=== PATIENT | female | born 1965 | race Caucasian/White ===

== ENCOUNTER 2017-03-21 11:34 | Emergency (ER) | payer SELFPAY | END 2017-03-21 14:13 | disposition left against medical advice (07) | LOC: E/R 14:13 | DX: Z53.21 Procedure and treatment not carried out due to patient leaving prior to being seen by health care provider (principal) ==

== ENCOUNTER 2018-06-03 09:27 | Inpatient (IN) | payer OTHER ==
[2018-06-03] MEDS: SOD CHLORIDE 0.9% 1,000 ML IV (07:00)
[2018-06-03 10:42] LABS: ADD MAN DIFF? NO
[2018-06-03 10:46] LABS: BASOPHILS % 0.6 % (0.0-2.0); EOSINOPHILS # 0.1 10^3/ul (0.0-0.5); EOSINOPHILS % 1.5 % (0.0-7.0); HEMATOCRIT 39.1 % (37.0-47.0); HEMOGLOBIN 12.1 g/dl (12.0-16.0); LYMPHOCYTES # 2.2 10^3/ul (0.8-2.9); LYMPHOCYTES % 30.8 % (15.0-51.0); MEAN CORPUSCULAR HEMOGLOBIN 26.2 pg (29.0-33.0); MEAN CORPUSCULAR HGB CONC 30.9 g/dl (32.0-37.0); MEAN CORPUSCULAR VOLUME 84.8 fl (82.0-101.0); MEAN PLATELET VOLUME 9.4 fl (7.4-10.4); MONOCYTE # 0.4 10^3/ul (0.3-0.9); MONOCYTES % 6.1 % (0.0-11.0); NEUTROPHIL # 4.4 10^3/ul (1.6-7.5); NEUTROPHILS % 60.6 % (39.0-77.0); PLATELET COUNT 270 10^3/UL (140-415); RED BLOOD COUNT 4.61 10^6/ul (4.20-5.40); RED CELL DISTRIBUTION WIDTH 15.6 % (11.5-14.5)
[2018-06-03 10:46] LABS: WHITE BLOOD COUNT 7.2 10^3/ul (4.8-10.8)
[2018-06-03] MEDS ORDERED: PROPOFOL 20 ML (10:49)
[2018-06-03] MEDS ORDERED: ROCURONIUM 50 MG INJ (10:49)
[2018-06-03] MEDS ORDERED: LIDOCAINE 2% (SDV) 5 ML INJ (10:49)
[2018-06-03] MEDS ORDERED: MIDAZOLAM 1 MG/ML 2 ML INJ ×2 (10:49→13:34)
[2018-06-03] MEDS ORDERED: FENTAnyl 50 MCG/ML VIAL (10:52)
[2018-06-03] MEDS ORDERED: morphine SULFATE/PF (10 MG/10 ML) INJ (10:53)
[2018-06-03] MEDS ORDERED: ROPIVACAINE 0.5 % 30 ML VIAL (10:54)
[2018-06-03] MEDS ORDERED: HYDROmorphONE 1 MG/5 ML IV SYRINGE IV (11:00)
[2018-06-03 11:01] LABS: ANION GAP 8 (5-13); BLOOD UREA NITROGEN 18 mg/dl (7-20); CARBON DIOXIDE 30 mmol/L (21-31); CHLORIDE 104 mmol/L (97-110); Estimated GFR 59 mL/min (>60); GLUCOSE 118 mg/dl (70-220); POTASSIUM 4.5 mmol/L (3.5-5.1); SODIUM 142 mmol/L (135-144)
[2018-06-03 11:03] LABS: INR 0.95; PROTIME 12.8 Sec (11.9-14.9)
[2018-06-03 11:15] LABS: PARTIAL THROMBOPLASTIN TIME 35.5 Sec (23.0-35.0)
[2018-06-03] MEDS ORDERED: ONDANSETRON 4 MG INJ (11:29)
[2018-06-03] MEDS ORDERED: CEFAZOLIN 1 GM INJ (11:29)
[2018-06-03] MEDS: CEFAZOLIN 2 GM/50 ML (PMX) 50 ML IVPB (11:30)
[2018-06-03] MEDS: POLYMYXIN/BACITRACIN 1L IRRIG (12:31)
[2018-06-03] MEDS ORDERED: SUGAMMADEX SODIUM 200 MG/2 ML VIAL IV (13:18)
[2018-06-03] MEDS ORDERED: ONDANSETRON 4 MG INJ IV (13:30)
[2018-06-03] MEDS ORDERED: ACETAMINOPHEN 325 MG TAB PO (13:30)
[2018-06-03] MEDS ORDERED: HYDROmorphONE 0.5 MG/0.5 ML SYG IV (13:30)
[2018-06-03] MEDS: ONDANSETRON 4 MG INJ IV (13:54)
[2018-06-03] MEDS: HYDROmorphONE 1 MG/5 ML IV SYRINGE IV (13:54)
[2018-06-03] MEDS: KETOROLAC 30 MG INJ IV ×2 (13:56→20:32)
[2018-06-03] MEDS ORDERED: ROPIVACAINE 0.2% 100ML BAG EPI ×2 (14:30→15:00)
[2018-06-03] MEDS ORDERED: NALOXONE (0.4 MG/ML) INJ IV ×2 (14:30→15:00)
[2018-06-03] MEDS: DIPHENHYDRAMINE 50 MG INJ IV (15:40)
[2018-06-03] MEDS: HYDROmorphONE 1 MG/ML SYG IV ×2 (17:07→21:08)
[2018-06-03] MEDS: DEXTROSE 5%-0.45% NACL 1,000 ML IV ×2 (17:07→23:30)
[2018-06-03] MEDS: MIDAZOLAM 1 MG/ML 2 ML INJ IV (18:00)
[2018-06-03] MEDS: FAMOTIDINE 20 MG INJ IV (20:34)
[2018-06-03] MEDS: DOCUSATE SODIUM 100 MG CAP PO (20:39)
[2018-06-03] MEDS ORDERED: ROPIVACAINE 0.5% EPI (21:30)
[2018-06-03] MEDS: ROPIVACAINE 0.5% EPI (22:16)
[2018-06-04] MEDS: KETOROLAC 30 MG INJ IV ×5 (01:30→21:17)
[2018-06-04] MEDS: HYDROmorphONE 1 MG/ML SYG IV ×6 (02:00→23:37)
[2018-06-04] MEDS: DEXTROSE 5%-0.45% NACL 1,000 ML IV ×3 (02:26→23:38)
[2018-06-04] MEDS: ROPIVACAINE 0.5% EPI (05:46)
[2018-06-04] MEDS: DOCUSATE SODIUM 100 MG CAP PO ×3 (08:23→21:17)
[2018-06-04] MEDS: FAMOTIDINE 20 MG INJ IV ×2 (08:23→21:17)
[2018-06-04 09:19] LABS: ADD MAN DIFF? NO
[2018-06-04 09:29] LABS: WHITE BLOOD COUNT 6.8 10^3/ul (4.8-10.8)
[2018-06-04 09:29] LABS: BASOPHILS % 0.3 % (0.0-2.0); EOSINOPHILS # 0.1 10^3/ul (0.0-0.5); EOSINOPHILS % 1.3 % (0.0-7.0); HEMATOCRIT 36.6 % (37.0-47.0); LYMPHOCYTES # 1.4 10^3/ul (0.8-2.9); LYMPHOCYTES % 21.1 % (15.0-51.0); MEAN CORPUSCULAR HEMOGLOBIN 26.4 pg (29.0-33.0); MEAN CORPUSCULAR HGB CONC 30.1 g/dl (32.0-37.0); MEAN CORPUSCULAR VOLUME 87.8 fl (82.0-101.0); MEAN PLATELET VOLUME 9.5 fl (7.4-10.4); MONOCYTE # 0.6 10^3/ul (0.3-0.9); MONOCYTES % 8.2 % (0.0-11.0); NEUTROPHIL # 4.7 10^3/ul (1.6-7.5); NEUTROPHILS % 68.8 % (39.0-77.0); PLATELET COUNT 226 10^3/UL (140-415); RED BLOOD COUNT 4.17 10^6/ul (4.20-5.40); RED CELL DISTRIBUTION WIDTH 15.6 % (11.5-14.5)
[2018-06-04 09:53] LABS: ANION GAP 9 (5-13); BLOOD UREA NITROGEN 11 mg/dl (7-20); CALCIUM 8.7 mg/dl (8.4-10.2); CARBON DIOXIDE 24 mmol/L (21-31); CHLORIDE 104 mmol/L (97-110); CREATININE 0.85 mg/dl (0.44-1.00); Estimated GFR > 60 mL/min (>60); GLUCOSE 159 mg/dl (70-220); POTASSIUM 4.1 mmol/L (3.5-5.1); SODIUM 137 mmol/L (135-144)
[2018-06-04] MEDS: CEFTRIAXONE 1 GM/50 ML (PMX) 50 ML IVPB (15:30)
[2018-06-04] MEDS ORDERED: HYDROmorphONE 0.2 MG/ML PCA IV (16:00)
[2018-06-04] MEDS: NICOTINE (21 MG/24 HR) PATCH TRANSDERM (16:25)
[2018-06-04] MEDS: HYDROCODONE/APAP (10/325) TAB PO (18:09)
[2018-06-04] MEDS: ALPRAZOLAM 1 MG TAB PO (21:22)
[2018-06-05] MEDS: KETOROLAC 30 MG INJ IV ×2 (01:30→06:43)
[2018-06-05] MEDS: HYDROCODONE/APAP (10/325) TAB PO ×2 (03:18→19:25)
[2018-06-05] MEDS: HYDROmorphONE 1 MG/ML SYG IV ×5 (03:55→20:06)
[2018-06-05] MEDS: DEXTROSE 5%-0.45% NACL 1,000 ML IV (06:43)
[2018-06-05] MEDS: NICOTINE (21 MG/24 HR) PATCH TRANSDERM (08:13)
[2018-06-05] MEDS: DOCUSATE SODIUM 100 MG CAP PO ×3 (08:15→20:06)
[2018-06-05] MEDS: FAMOTIDINE 20 MG INJ IV (08:15)
[2018-06-05 11:14] LABS: ADD MAN DIFF? NO
[2018-06-05 11:21] LABS: WHITE BLOOD COUNT 6.2 10^3/ul (4.8-10.8)
[2018-06-05 11:21] LABS: BASOPHILS % 0.5 % (0.0-2.0); EOSINOPHILS # 0.2 10^3/ul (0.0-0.5); EOSINOPHILS % 2.6 % (0.0-7.0); HEMATOCRIT 35.5 % (37.0-47.0); HEMOGLOBIN 10.9 g/dl (12.0-16.0); LYMPHOCYTES # 1.5 10^3/ul (0.8-2.9); MEAN CORPUSCULAR HEMOGLOBIN 26.4 pg (29.0-33.0); MEAN CORPUSCULAR HGB CONC 30.7 g/dl (32.0-37.0); MEAN PLATELET VOLUME 9.6 fl (7.4-10.4); MONOCYTE # 0.4 10^3/ul (0.3-0.9); MONOCYTES % 6.9 % (0.0-11.0); NEUTROPHIL # 4.1 10^3/ul (1.6-7.5); NEUTROPHILS % 65.4 % (39.0-77.0); PLATELET COUNT 217 10^3/UL (140-415); RED BLOOD COUNT 4.13 10^6/ul (4.20-5.40); RED CELL DISTRIBUTION WIDTH 15.2 % (11.5-14.5)
[2018-06-05 11:37] LABS: ANION GAP 6 (5-13); BLOOD UREA NITROGEN 9 mg/dl (7-20); CALCIUM 8.8 mg/dl (8.4-10.2); CARBON DIOXIDE 31 mmol/L (21-31); CHLORIDE 102 mmol/L (97-110); CREATININE 0.77 mg/dl (0.44-1.00); Estimated GFR > 60 mL/min (>60); GLUCOSE 156 mg/dl (70-220); POTASSIUM 3.9 mmol/L (3.5-5.1); SODIUM 139 mmol/L (135-144)
[2018-06-05] MEDS: ERTAPENEM SODIUM 1 GM in SOD CHLORIDE 0.9% 100 ML IVPB (12:15)
[2018-06-05] MEDS: ALPRAZOLAM 1 MG TAB PO ×2 (14:44→22:50)
[2018-06-05] MEDS: MAGNESIUM HYDROXIDE 30ML CUP PO (18:47)
[2018-06-05] MEDS: FAMOTIDINE 20 MG TAB PO (20:06)
[2018-06-06] MEDS: HYDROmorphONE 1 MG/ML SYG IV ×5 (00:11→17:01)
[2018-06-06] MEDS: ALPRAZOLAM 1 MG TAB PO ×2 (06:41→14:58)
[2018-06-06] MEDS: NICOTINE (21 MG/24 HR) PATCH TRANSDERM (08:38)
[2018-06-06] MEDS: DOCUSATE SODIUM 100 MG CAP PO ×2 (08:39→14:18)
[2018-06-06] MEDS: FAMOTIDINE 20 MG TAB PO (08:39)
[2018-06-06] MEDS: MAGNESIUM HYDROXIDE 30ML CUP PO (09:38)
[2018-06-06] MEDS: ERTAPENEM SODIUM 1 GM in SOD CHLORIDE 0.9% 100 ML IVPB (11:42)
[2018-06-06] MEDS: BISACODYL (EC) 5 MG TAB PO (14:18)
== END 2018-06-06 17:40 | disposition home or self-care (01) | DRG 354 ==
LOC: REC 09:27 → MS1 16:21
PROC: 0WUF0JZ Supplement Abdominal Wall with Synthetic Substitute, Open Approach (ICD-10-PCS; principal; 2018-06-03 11:00)
PROC: 0HX7XZZ Transfer Abdomen Skin, External Approach (ICD-10-PCS; 2018-06-03 11:00)
DX: K43.9 Ventral hernia without obstruction or gangrene (principal); N39.0 Urinary tract infection, site not specified; K42.9 Umbilical hernia without obstruction or gangrene; Z72.0 Tobacco use; F41.8 Other specified anxiety disorders; B96.20 Unspecified Escherichia coli [E. coli] as the cause of diseases classified elsewhere; Z16.12 Extended spectrum beta lactamase (ESBL) resistance
CPT/HCPCS: 71045; 80048; 84703; 85025; 85610; 85730; 87086; 88302; 93005; 93922; 97116; 97161; 97530